=== PATIENT | female | born 1995 | race Hispanic/Latino ===

== ENCOUNTER 2022-10-21 07:56 | Emergency (ER) | payer BC, OTHER ==
[2022-10-21 08:40] LABS: #Eosinphils 0.1 10x3/uL (0.0-0.5); #Monocytes 0.8 10x3/uL (0.0-1.1); #Neutrophils 7.6 10x3/uL (1.5-8.4); %Basophils 0.3 % (0.0-2.0); %Eosinophils 0.8 % (0.0-6.0); %Lymphocytes 28.2 % (18.0-47.0); %Neutrophils 63.4 % (40.0-75.0); Mean Corpuscular HGB CONC 34.2 g/dL (32.0-36.0); Mean Corpuscular Hemoglobin 26.8 pg (27.0-33.0); Mean Corpuscular Volume 78.5 fl (81.6-98.3); Mean Platelet Volume 8.9 fl (7.4-10.4); Platelet Count 295 10x3/uL (150-450); Red Blood Cell (RBC) Count 4.47 10x6/uL (3.90-5.03); White Blood Cell (WBC) Count 11.9 10x3/uL (3.5-10.5)
[2022-10-21 08:49] LABS: Anion Gap 14 mmol/L (10-20); BUN (Urea Nitrogen) 10 mg/dL (7.0-18.7); Calc. Creatinine Clearance 0 mL/min (70-130); Calcium 9.6 mg/dL (7.8-10.44); Carbon Dioxide 19 mmol/L (22-29); Chloride 109 mmol/L (98-107); Estimated GFR 123; Glucose 96 mg/dL (70-105); Potassium 4.1 mmol/L (3.5-5.1); Sodium 138 mmol/L (136-145)
== END 2022-10-21 11:35 | disposition home or self-care (01) ==
LOC: CSHERS 07:56
DX: O20.0 Threatened abortion (principal); D72.829 Elevated white blood cell count, unspecified; Z3A.14 14 weeks gestation of pregnancy
CPT/HCPCS: 76815; 80048; 84702; 85025

== ENCOUNTER 2022-10-23 04:11 | Emergency (ER) | payer BC ==
[2022-10-23] MEDS ORDERED: Morphine 4 MG/ML VIAL ONE ×2 (04:29→04:41)
[2022-10-23] MEDS ORDERED: Ondansetron PF 4 MG/2 ML Vial ONE ×2 (04:33→05:18)
[2022-10-23 04:51] LABS: #Monocytes 1.1 10x3/uL (0.0-1.1); #Neutrophils 10.5 10x3/uL (1.5-8.4); %Basophils 0.2 % (0.0-2.0); %Eosinophils 0.3 % (0.0-6.0); %Lymphocytes 19.9 % (18.0-47.0); %Monocytes 7.2 % (0.0-10.0); Hemoglobin 12.1 g/dL (12.0-15.5); Mean Corpuscular HGB CONC 33.7 g/dL (32.0-36.0); Mean Corpuscular Hemoglobin 26.7 pg (27.0-33.0); Mean Corpuscular Volume 79.2 fl (81.6-98.3); Mean Platelet Volume 8.8 fl (7.4-10.4); Platelet Count 323 10x3/uL (150-450); RBC Distribution Width 15.3 % (11.5-14.5); Red Blood Cell (RBC) Count 4.53 10x6/uL (3.90-5.03); White Blood Cell (WBC) Count 14.5 10x3/uL (3.5-10.5)
[2022-10-23] MEDS ORDERED: Carboprost 250 MCG/ML AMP ONE (05:00)
[2022-10-23] MEDS ORDERED: Oxytocin 10 UNITS/ML VIAL ONE (05:00)
[2022-10-23 05:08] LABS: ALT (SGPT) 16 U/L (8-55); AST (SGOT) 14 U/L (5-34); Albumin 3.8 g/dL (3.5-5.0); Alkaline Phosphatase 59 U/L (40-110); Anion Gap 16 mmol/L (10-20); BUN (Urea Nitrogen) 10 mg/dL (7.0-18.7); Bilirubin, Total 0.2 mg/dL (0.2-1.2); Calc. Creatinine Clearance 0 mL/min (70-130); Calcium 9.9 mg/dL (7.8-10.44); Carbon Dioxide 20 mmol/L (22-29); Chloride 109 mmol/L (98-107); Estimated GFR 121; Globulin 3.5 g/dL (2.4-3.5); Glucose 123 mg/dL (70-105); Potassium 3.7 mmol/L (3.5-5.1); Protein, Total 7.3 g/dL (6.0-8.3); Sodium 141 mmol/L (136-145)
[2022-10-23] MEDS ORDERED: Diphenoxylate HCl/Atropine Tablet ONE (05:10)
[2022-10-23] MEDS ORDERED: HYDROmorphone 0.5 MG/0.5 ML SYRINGE ONE (06:01)
[2022-10-23 06:16] LABS: Hemoglobin 10.7 g/dL (12.0-15.5)
[2022-10-23] MEDS ORDERED: Ketorolac Tromethamine 30 MG/ML VIAL ONE (07:12)
== END 2022-10-23 08:30 | disposition home or self-care (01) ==
LOC: CSHERS 04:11
DX: O03.9 Complete or unspecified spontaneous abortion without complication (principal)
CPT/HCPCS: 36415; 80053; 84702; 85025; 86900; 86901; 88300; 88305; 96374; 96375; 96376; J1170; J1885; J2270; J2405; J2590; J3490

== ENCOUNTER 2023-08-06 15:28 | Inpatient (IN) | payer BC, OTHER ==
[2023-08-06] MEDS ORDERED: hydrALAZINE 20 MG/ML VIAL SLOW IVP PRN (15:54)
[2023-08-06] MEDS ORDERED: Ondansetron PF 4 MG/2 ML Vial IVP PRN (15:54)
[2023-08-06] MEDS ORDERED: Promethazine HCl 25 MG/ML VIAL IM PRN (15:54)
[2023-08-06] MEDS ORDERED: Lorazepam 2 MG/ML VIAL SLOW IVP PRN (15:57)
[2023-08-06] MEDS ORDERED: Calcium Gluc 4.6 MEQ/10 ML (100 MG/ML) SLOW IVP PRN (15:57)
[2023-08-06] MEDS ORDERED: Azithromycin 500 MG in Sodium Chloride 0.9% 250 ML 250 ML IVPB SCH (16:00)
[2023-08-06] MEDS ORDERED: Magnesium Sulfate 20 gm/500 ml 4 GM/100 ML BAG IVPB ONE (16:15)
[2023-08-06 16:22] VITALS: BMI 45.4
[2023-08-06] MEDS: Lactated Ringer's 1,000 ML IV SCH (16:46)
[2023-08-06 17:16] LABS: Hematocrit 34.5 % (34.9-44.5); Hemoglobin 11.2 g/dL (12.0-15.5); Mean Corpuscular HGB CONC 32.5 g/dL (32.0-36.0); Mean Corpuscular Hemoglobin 26.6 pg (27.0-33.0); Mean Corpuscular Volume 81.9 fl (81.6-98.3); Mean Platelet Volume 9.3 fl (7.4-10.4); Platelet Count 374 10x3/uL (150-450); RBC Distribution Width 14.4 % (11.5-14.5); Red Blood Cell (RBC) Count 4.21 10x6/uL (3.90-5.03); White Blood Cell (WBC) Count 15.3 10x3/uL (3.5-10.5)
[2023-08-06 17:50] LABS: HBSAg Index 0.17 S/CO (0-0.99); HIV (1/2) Antibody/Antigen Non-Reactive (NonReactive); HIV 1/2 INDEX 0.11 S/CO (<1.00); Hep B Surf Ag - L&D Non-Reactive S/CO (NonReactive)
[2023-08-06 17:51] LABS: Syphilis Antibody Nonreactive (Nonreactive); Syphilis Antibody Index 0.05 S/CO (<1.00 Non-Reactive)
[2023-08-06] MEDS: Ampicillin 2 GM in Sodium Chloride 0.9% 100 ML IVPB SCH (18:18)
[2023-08-06] MEDS ORDERED: Zolpidem Tartrate 5 MG TAB PO SCH (22:45)
[2023-08-07] MEDS: Ampicillin 2 GM in Sodium Chloride 0.9% 100 ML IVPB SCH ×4 (00:08→18:38)
[2023-08-07 03:31] LABS: #Monocytes 0.8 10x3/uL (0.0-1.1); #Neutrophils 12.7 10x3/uL (1.5-8.4); %Basophils 0.1 % (0.0-2.0); %Monocytes 5.5 % (0.0-10.0); %Neutrophils 84.9 % (40.0-75.0); Hematocrit 30.7 % (34.9-44.5); Hemoglobin 10.2 g/dL (12.0-15.5); Mean Corpuscular HGB CONC 33.2 g/dL (32.0-36.0); Mean Corpuscular Hemoglobin 27.1 pg (27.0-33.0); Mean Corpuscular Volume 81.4 fl (81.6-98.3); Platelet Count 328 10x3/uL (150-450); RBC Distribution Width 14.3 % (11.5-14.5); Red Blood Cell (RBC) Count 3.77 10x6/uL (3.90-5.03)
[2023-08-07 03:46] LABS: Magnesium 4.2 mg/dL (1.6-2.6)
[2023-08-07] MEDS: Magnesium Sulfate 20 gm/500 ml 20 GM/500 ML BAG IVPB SCH ×3 (04:00→22:59)
[2023-08-07] MEDS: Lactated Ringer's 1,000 ML IV SCH (11:48)
[2023-08-07] MEDS ORDERED: Lorazepam 2 MG/ML VIAL SLOW IVP PRN (19:33)
[2023-08-07] MEDS ORDERED: Calcium Gluc 4.6 MEQ/10 ML (100 MG/ML) SLOW IVP PRN (19:33)
[2023-08-07] MEDS: Azithromycin 500 MG in Sodium Chloride 0.9% 250 ML 250 ML IVPB SCH (21:16)
[2023-08-08] MEDS: Ampicillin 2 GM in Sodium Chloride 0.9% 100 ML IVPB SCH ×4 (01:24→22:29)
[2023-08-08 03:48] LABS: #Monocytes 1.1 10x3/uL (0.0-1.1); %Basophils 0.1 % (0.0-2.0); %Eosinophils 0.1 % (0.0-6.0); %Monocytes 7.6 % (0.0-10.0); %Neutrophils 75.7 % (40.0-75.0); Hemoglobin 10.2 g/dL (12.0-15.5); Mean Corpuscular HGB CONC 32.9 g/dL (32.0-36.0); Mean Corpuscular Hemoglobin 26.7 pg (27.0-33.0); Mean Corpuscular Volume 81.2 fl (81.6-98.3); Mean Platelet Volume 8.8 fl (7.4-10.4); Platelet Count 348 10x3/uL (150-450); RBC Distribution Width 14.7 % (11.5-14.5); Red Blood Cell (RBC) Count 3.82 10x6/uL (3.90-5.03); White Blood Cell (WBC) Count 14.6 10x3/uL (3.5-10.5)
[2023-08-08 03:58] LABS: Magnesium 4.8 mg/dL (1.6-2.6)
[2023-08-08] MEDS ORDERED: Famotidine 20 MG TAB PO SCH (05:15)
[2023-08-08] MEDS: Docusate 100 MG CAP PO PRN ×2 (08:07→22:27)
[2023-08-08] MEDS: Magnesium Sulfate 20 gm/500 ml 20 GM/500 ML BAG IVPB SCH (09:29)
[2023-08-08] MEDS: Lactated Ringer's 1,000 ML IV SCH (18:20)
[2023-08-08] MEDS: Azithromycin 500 MG in Sodium Chloride 0.9% 250 ML 250 ML IVPB SCH (18:51)
[2023-08-09] MEDS ORDERED: Calcium Carbonate 500 MG ChewTAB PO PRN (03:08)
[2023-08-09] MEDS: Magnesium Sulfate 20 gm/500 ml 20 GM/500 ML BAG IVPB SCH (03:36)
[2023-08-09] MEDS: Acetaminophen 500 MG TAB PO PRN (06:12)
[2023-08-09] MEDS: Ampicillin 2 GM in Sodium Chloride 0.9% 100 ML IVPB SCH ×3 (06:14→23:38)
[2023-08-09] MEDS ORDERED: Famotidine/PF 20 mg/2ml Vial SLOW IVP SCH (19:15)
[2023-08-09] MEDS: AMOXicillin 250 MG CAP PO SCH (20:50)
[2023-08-09] MEDS: Lactated Ringer's 1,000 ML IV SCH ×3 (23:36→23:38)
[2023-08-10 03:17] LABS: #Eosinphils 0.1 10x3/uL (0.0-0.5); #Monocytes 1.1 10x3/uL (0.0-1.1); #Neutrophils 8.8 10x3/uL (1.5-8.4); %Basophils 0.2 % (0.0-2.0); %Eosinophils 0.8 % (0.0-6.0); %Lymphocytes 22.9 % (18.0-47.0); %Monocytes 8.6 % (0.0-10.0); %Neutrophils 67.2 % (40.0-75.0); Hematocrit 31.6 % (34.9-44.5); Hemoglobin 10.3 g/dL (12.0-15.5); Mean Corpuscular HGB CONC 32.6 g/dL (32.0-36.0); Mean Corpuscular Volume 82.7 fl (81.6-98.3); Platelet Count 337 10x3/uL (150-450); RBC Distribution Width 14.4 % (11.5-14.5); Red Blood Cell (RBC) Count 3.82 10x6/uL (3.90-5.03); White Blood Cell (WBC) Count 13.1 10x3/uL (3.5-10.5)
[2023-08-10] MEDS: AMOXicillin 250 MG CAP PO SCH ×2 (08:03→21:36)
[2023-08-10] MEDS: Lactated Ringer's 1,000 ML IV SCH (17:16)
[2023-08-11] MEDS: AMOXicillin 250 MG CAP PO SCH ×2 (09:38→21:41)
[2023-08-12] MEDS: AMOXicillin 250 MG CAP PO SCH ×2 (10:11→21:09)
[2023-08-13] MEDS: AMOXicillin 250 MG CAP PO SCH ×2 (08:43→21:30)
[2023-08-14] MEDS: AMOXicillin 250 MG CAP PO SCH ×2 (10:02→22:28)
[2023-08-15 07:53] LABS: #Eosinphils 0.1 10x3/uL (0.0-0.5); #Monocytes 0.7 10x3/uL (0.0-1.1); #Neutrophils 9.5 10x3/uL (1.5-8.4); %Basophils 0.3 % (0.0-2.0); %Eosinophils 0.9 % (0.0-6.0); %Lymphocytes 20.2 % (18.0-47.0); %Neutrophils 73.2 % (40.0-75.0); Hematocrit 35.7 % (34.9-44.5); Hemoglobin 11.7 g/dL (12.0-15.5); Mean Corpuscular HGB CONC 32.8 g/dL (32.0-36.0); Mean Corpuscular Hemoglobin 27.1 pg (27.0-33.0); Mean Corpuscular Volume 82.8 fl (81.6-98.3); Mean Platelet Volume 8.9 fl (7.4-10.4); Platelet Count 362 10x3/uL (150-450); RBC Distribution Width 13.9 % (11.5-14.5); Red Blood Cell (RBC) Count 4.31 10x6/uL (3.90-5.03)
[2023-08-15] MEDS: AMOXicillin 250 MG CAP PO SCH ×2 (09:11→21:04)
[2023-08-15] MEDS: Acetaminophen 500 MG TAB PO PRN (23:07)
[2023-08-16] MEDS: AMOXicillin 250 MG CAP PO SCH (08:01)
[2023-08-16] MEDS: Docusate 100 MG CAP PO PRN (08:01)
[2023-08-16] MEDS ORDERED: Azithromycin 500 MG VIAL ONE (09:54)
[2023-08-16] MEDS ORDERED: Ampicillin 2 GM VIAL ONE (09:54)
[2023-08-16] MEDS ORDERED: Betamet Acet/Betamet Na Ph 30 MG/5 ML VIAL ONE (10:13)
[2023-08-16 10:32] LABS: #Eosinphils 0.1 10x3/uL (0.0-0.5); #Monocytes 1.3 10x3/uL (0.0-1.1); %Basophils 0.2 % (0.0-2.0); %Eosinophils 0.3 % (0.0-6.0); %Lymphocytes 12.9 % (18.0-47.0); %Monocytes 6.5 % (0.0-10.0); %Neutrophils 79.6 % (40.0-75.0); Hematocrit 37.4 % (34.9-44.5); Hemoglobin 12.6 g/dL (12.0-15.5); Mean Corpuscular HGB CONC 33.7 g/dL (32.0-36.0); Mean Corpuscular Hemoglobin 27.8 pg (27.0-33.0); Mean Corpuscular Volume 82.4 fl (81.6-98.3); Mean Platelet Volume 10.1 fl (7.4-10.4); Platelet Count 432 10x3/uL (150-450); RBC Distribution Width 14.3 % (11.5-14.5); Red Blood Cell (RBC) Count 4.54 10x6/uL (3.90-5.03); White Blood Cell (WBC) Count 20.1 10x3/uL (3.5-10.5)
[2023-08-16] MEDS ORDERED: CEFAZOLIN 2 GM VIAL ONE (10:37)
[2023-08-16] MEDS ORDERED: fentaNYL 50 mcg/mL 1 mL Vial ONE ×3 (10:49→12:33)
[2023-08-16] MEDS ORDERED: Morphine PF 10 MG/10 ML VIAL ONE (10:49)
[2023-08-16] MEDS ORDERED: Phenylephrine 40 MG/NS 250 ML 250 ML ONE (10:50)
[2023-08-16] MEDS ORDERED: Ondansetron PF 4 MG/2 ML Vial ONE (11:08)
[2023-08-16] MEDS ORDERED: PHENYLEPHRINE-NS 100 MCG/ML 10 ML SYRINGE ONE (11:08)
[2023-08-16 11:18] LABS: ALT (SGPT) 16 U/L (8-55); AST (SGOT) 14 U/L (5-34); Albumin 3.1 g/dL (3.5-5.0); Alkaline Phosphatase 93 U/L (40-110); Anion Gap 15 mmol/L (10-20); BUN (Urea Nitrogen) 8 mg/dL (7.0-18.7); Bilirubin, Total 0.4 mg/dL (0.2-1.2); Calc. Creatinine Clearance 246 mL/min (70-130); Calcium 9.4 mg/dL (7.8-10.44); Carbon Dioxide 21 mmol/L (22-29); Chloride 106 mmol/L (98-107); Estimated GFR 123; Globulin 3.6 g/dL (2.4-3.5); Glucose 107 mg/dL (70-105); Protein, Total 6.7 g/dL (6.0-8.3); Sodium 138 mmol/L (136-145)
[2023-08-16] MEDS ORDERED: diphenhydrAMINE 50 MG/ML VIAL ONE (11:30)
[2023-08-16] MEDS ORDERED: Oxytocin 10 UNITS/ML VIAL ONE (11:46)
[2023-08-16 11:51] LABS: Analyzer IN Cardio CS NICU; RapidComm Collect By CBN; pH (Cord, venous) 7.358 (7.250-7.350)
[2023-08-16 11:52] LABS: Analyzer IN Cardio CS NICU; RapidComm Collect By CBN
[2023-08-16] MEDS ORDERED: Bupivacaine PF 0.5% 30 ML VIAL ONE (11:57)
[2023-08-16] MEDS ORDERED: Moisturizing Cream (Eucerin) 113 GM JAR TOP PRN (12:55)
[2023-08-16] MEDS ORDERED: Naloxone HCl 0.4 mg/ml Vial IV PRN (12:55)
[2023-08-16] MEDS ORDERED: Ondansetron PF 4 MG/2 ML Vial IVP PRN ×3 (12:55→15:27)
[2023-08-16] MEDS ORDERED: diphenhydrAMINE 50 MG/ML VIAL IVP PRN (12:55)
[2023-08-16] MEDS ORDERED: Promethazine HCl 25 MG SUPP PR PRN (12:55)
[2023-08-16] MEDS ORDERED: Promethazine HCl 25 MG/ML VIAL IM PRN ×2 (12:55→15:27)
[2023-08-16] MEDS ORDERED: Naloxone HCl 0.4 mg/ml Vial IVP PRN ×2 (12:55)
[2023-08-16] MEDS ORDERED: Meperidine HCl/PF 25 MG/ML VIAL SLOW IVP PRN (12:56)
[2023-08-16] MEDS ORDERED: HYDROmorphone 0.5 MG/0.5 ML SYRINGE SLOW IVP PRN (12:56)
[2023-08-16] MEDS ORDERED: fentaNYL 50 mcg/mL 1 mL Vial SLOW IVP PRN (12:56)
[2023-08-16] MEDS ORDERED: Ketorolac Tromethamine 30 MG/ML VIAL IVP SCH (13:00)
[2023-08-16] MEDS ORDERED: Communication Order-Pharmacy FS SCH (13:00)
[2023-08-16] MEDS ORDERED: Acetaminophen 325 MG TAB PO PRN (15:27)
[2023-08-16] MEDS ORDERED: Simethicone Chewable 80 MG TAB PO PRN (15:27)
[2023-08-16] MEDS ORDERED: diphenhydrAMINE 25 MG CAP PO PRN (15:27)
[2023-08-16] MEDS ORDERED: hydrALAZINE 20 MG/ML VIAL SLOW IVP PRN (15:27)
[2023-08-16] MEDS ORDERED: Misoprostol 200 MCG TAB PR PRN (15:27)
[2023-08-16] MEDS ORDERED: Lanolin Ointment 7 GM TUBE TOP PRN (15:27)
[2023-08-16] MEDS ORDERED: Methylergonovine 0.2 MG/ML VIAL IM PRN (15:27)
[2023-08-16] MEDS ORDERED: Zolpidem Tartrate 5 MG TAB PO PRN (15:27)
[2023-08-16] MEDS ORDERED: Boostrix 0.5 ML (Tdap) VIAL (>/=7 yrs of age) IM ONE (15:27)
[2023-08-16] MEDS ORDERED: Oxytocin 30 units/NS 500 ML 500 ML IV SCH (15:27)
[2023-08-16] MEDS ORDERED: Bisacodyl 10 MG SUPP PR PRN (15:27)
[2023-08-16] MEDS: Ampicillin/Sulbactam 3 GM in Sodium Chloride 0.9% 100 ML IVPB SCH ×2 (16:41→22:03)
[2023-08-16] MEDS: Ketorolac Tromethamine 30 MG/ML VIAL IVP PRN (22:03)
[2023-08-16] MEDS: Ferrous Sulfate 325 MG TAB PO SCH (23:16)
[2023-08-16] MEDS: Docusate 100 MG CAP PO SCH (23:16)
[2023-08-17] MEDS ORDERED: HYDROcodone/Acetaminophen 5/325 mg Tablet PO PRN (01:00)
[2023-08-17 04:01] LABS: Hemoglobin 9.1 g/dL (12.0-15.5); Mean Corpuscular HGB CONC 33.7 g/dL (32.0-36.0); Mean Corpuscular Hemoglobin 27.7 pg (27.0-33.0); Mean Corpuscular Volume 82.1 fl (81.6-98.3); Mean Platelet Volume 9.1 fl (7.4-10.4); Platelet Count 324 10x3/uL (150-450); RBC Distribution Width 13.8 % (11.5-14.5); Red Blood Cell (RBC) Count 3.29 10x6/uL (3.90-5.03)
[2023-08-17] MEDS: Ampicillin/Sulbactam 3 GM in Sodium Chloride 0.9% 100 ML IVPB SCH ×2 (04:21→09:21)
[2023-08-17] MEDS: Ketorolac Tromethamine 30 MG/ML VIAL IVP PRN (04:22)
[2023-08-17] MEDS: Docusate 100 MG CAP PO SCH ×2 (08:32→21:10)
[2023-08-17] MEDS: Prenatal Vitamin 1 TAB PO SCH (08:32)
[2023-08-17] MEDS: HYDROcodone/Acetaminophen 5/325 mg Tablet PO PRN ×3 (08:32→21:09)
[2023-08-17] MEDS: Ferrous Sulfate 325 MG TAB PO SCH ×2 (08:32→21:09)
[2023-08-17] MEDS: Ibuprofen 800 MG TAB PO SCH (21:10)
[2023-08-18] MEDS: Ibuprofen 800 MG TAB PO SCH (06:29)
[2023-08-18] MEDS: Prenatal Vitamin 1 TAB PO SCH (08:25)
[2023-08-18] MEDS: Ferrous Sulfate 325 MG TAB PO SCH (08:25)
[2023-08-18] MEDS: Docusate 100 MG CAP PO SCH (08:25)
[2023-08-18 10:00] VITALS: BP 113/58; TEMP 98.2
== END 2023-08-18 11:45 | disposition home or self-care (01) | DRG 786 ==
LOC: CSHERS 15:28 → EDSTATUS 15:31 → CSHLD 15:54 → UNDODISIN 17:23 → CSHLD 23:53 → CSHANTE 08-10 16:40 → CSHLD 08-16 09:30 → CSHPED 08-16 15:00
PROVIDERS: ADMIT Obstetrics & Gynecology; ATTEND Obstetrics & Gynecology
PROC: 10D00Z1 Extraction of Products of Conception, Low, Open Approach (ICD-10-PCS; principal; 2023-08-16)
PROC: 3E0P05Z Introduction of Adhesion Barrier into Female Reproductive, Open Approach (ICD-10-PCS; 2023-08-16)
DX: O42.113 Preterm premature rupture of membranes, onset of labor more than 24 hours following rupture, third trimester (principal); O34.33 Maternal care for cervical incompetence, third trimester; O41.1230 Chorioamnionitis, third trimester, not applicable or unspecified; O41.03X0 Oligohydramnios, third trimester, not applicable or unspecified; Z3A.29 29 weeks gestation of pregnancy; Z37.0 Single live birth; E66.9 Obesity, unspecified; D64.9 Anemia, unspecified; O99.02 Anemia complicating childbirth; O99.214 Obesity complicating childbirth; Z79.84 Long term (current) use of oral hypoglycemic drugs; Z79.899 Other long term (current) drug therapy; O76 Abnormality in fetal heart rate and rhythm complicating labor and delivery; O69.81X0 Labor and delivery complicated by cord around neck, without compression, not applicable or unspecified
CPT/HCPCS: 36415; 51702; 59025; 76815; 76819; 80053; 82805; 83605; 83735; 85025; 85027; 86780; 86850; 86900; 86901; 87040; 87340; 87389; 88307; J0290; J0295; J0456; J0702; J1200; J1885; J2274; J2405; J2590; J3010; J3475; J3490; J7050; J7120; S0020; S0028